=== PATIENT | male | born 1990 | race Caucasian/White ===

== ENCOUNTER 2018-06-02 19:14 | Emergency (ER) | payer BC ==
[2018-06-02 19:26] VITALS: BP 102/59
[2018-06-02 19:51] LABS: APPEARANCE,URINE CLEAR; BILIRUBIN,URINE NEGATIVE (NEGATIVE); COLOR,URINE AMBER; GLUCOSE, URINE NEGATIVE (NEGATIVE); KETONES,URINE NEGATIVE (NEGATIVE); LEUKOCYTE ESTERASE,URINE NEGATIVE (NEGATIVE); NITRITE,URINE NEGATIVE (NEGATIVE); PROTEIN,URINE 30 mg/dL (NEGATIVE)
--- NOTE | 2018-06-02 21:52 | ER Document Report ---
ED General - General Chief Complaint: Urinary Problem Stated Complaint: ABDOMINAL PAIN Time Seen by Provider: 06/02/18 21:18 TRAVEL OUTSIDE OF THE [place] IN LAST 30 DAYS: No - HPI Notes: 28-year-old male with history of anxiety, depression, insomnia, PTSD, IV drug abuse presents with multiple complaints. He initially stated that he was here for 2 days of bilateral foot swelling. Then he stated he was having a "reaction " to his Remeron. He states he was changed from Lunesta to Remeron about 1 week ago. He started hallucinating and talking to people that were not there. He would fall asleep during the day. He stopped taking this 2 days ago. Also reports constipation and states that there have been "bloody balls of stool in the toilet." Also reports an episode of "dark urine on the outside and bloody urine on the inside" whenever he urinated "for 5 minutes" today. He reported having lower abdominal pain and back pain during the episode. He is currently on Suboxone therapy and has not used IV drugs for a few months. - Related Data Allergies/Adverse Reactions: No Known Allergies Allergy (Verified 06/12/12 21:56) Past Medical History - Social History Smoking Status: Unknown if Ever Smoked Drug Abuse: Prescription drugs Family History: Reviewed & Not Pertinent Psychiatric Medical History: Reports: Hx Anxiety, Hx Attention Deficit Hyperactivity Disorder, Hx Depression, Hx Post Traumatic Stress Disorder - Immunizations Hx Diphtheria, Pertussis, Tetanus Vaccination: Yes Review of Systems - Review of Systems Notes: Constitutional: Negative for fever. HENT: Negative for sore throat. Eyes: Negative for visual changes. Cardiovascular: Negative for chest pain. Respiratory: Negative for shortness of breath. Gastrointestinal: Negative for abdominal pain, vomiting or diarrhea. Positive for constipation Genitourinary: Negative for dysuria. Positive for hematuria Musculoskeletal: Positive for back pain. Positive for bilateral feet swelling Skin: Negative for rash. Neurological: Negative for headaches, weakness or numbness. Positive for excessive sleepiness 10 point ROS negative except as marked above and in HPI. Physical Exam - Vital signs Vitals: Temp Pulse Resp BP Pulse Ox 98.2 F 81 16 102/59 L 100 06/02/18 19:23 06/02/18 19:23 06/02/18 19:23 06/02/18 19:23 08/14/18 19:23 - Notes Notes: PHYSICAL EXAMINATION: GENERAL: Well-appearing, well-nourished and in no acute distress. Appears older than stated age, disheveled HEAD: Atraumatic, normocephalic. EYES: Pupils equal round and reactive to light, extraocular movements intact, conjunctiva are normal. ENT: nares patent, oropharynx clear without exudates. Moist mucous membranes. NECK: Normal range of motion, supple without lymphadenopathy LUNGS: Breath sounds clear to auscultation bilaterally and equal. No wheezes rales or rhonchi. HEART: Regular rate and rhythm, no chest wall tenderness ABDOMEN: Soft, nontender, normoactive bowel sounds. No guarding, no rebound. No masses appreciated. EXTREMITIES: Normal range of motion. No cyanosis. 2+ pitting edema bilateral feet with tenderness NEUROLOGICAL: Cranial nerves grossly intact. Slurred speech, normal gait. Normal sensory and motor exams. PSYCH: Normal mood, normal affect. SKIN: Warm, Dry, normal turgor. Multiple areas of ecchymosis and excoriated skin lesions Course - Re-evaluation Re-evalutation: 06/02/18 23:45 Patient now remembers that he has a history of Lesli's thyroiditis, but has not been taking Synthroid for a year because he cannot find a doctor that we will treat him to work around his 6 day week work schedule. All of the unremarkable, but TSH pending. Urine drug screen positive for cocaine and benzos. 06/03/18 00:09 TSH normal. Family states he has recently relapsed on drugs while on Suboxone therapy. He has been to rehab multiple times but is not interested today. Will discharge. At this time will discharge with return precautions and follow-up recommendations. Verbal discharge instructions given a the bedside and opportunity for questions given. Medication warnings reviewed. Patient is in agreement with this plan and has verbalized understanding of return precautions and the need for primary care follow-up in the next 24-72 hours. - Vital Signs Vital signs: Temp Pulse Resp BP Pulse Ox 98.2 F 81 16 102/59 L 100 06/02/18 19:23 06/02/18 19:23 06/02/18 19:23 06/02/18 19:23 06/02/18 19:23 - Laboratory Result Diagrams: 06/02/18 22:15 06/02/18 22:15 Laboratory results interpreted by me: 06/02/18 06/02/18 06/02/18 19:15 22:15 22:15 RBC 3.88 L Hgb 11.6 L Hct 32.9 L Carbon Dioxide 31 H Glucose 128 H Urine Protein 30 H Urine Urobilinogen 4.0 H Discharge - Discharge Clinical Impression: Peripheral edema, Polysubstance abuse Constipation Qualifiers: Constipation type: unspecified constipation type Qualified Code(s): K59.00 - Constipation, unspecified Condition: Stable Disposition: HOME, SELF-CARE Additional Instructions: Increase fiber in diet. You may take daily stool softener such as Colace. Consider rehab therapy. Use compression stockings on legs and elevate. Referrals: JM,NO [NO LOCAL MD] - Follow up as needed SHANTA HANCOCK MD [ACTIVE STAFF] - Follow up in 3-5 days
[2018-06-02 22:11] LABS: URINE AMPHETAMINES SCREEN NEGATIVE; URINE BARBITURATES SCREEN NEGATIVE; URINE BENZODIAZEPINES SCREEN UNCONFIRMED POSITIVE; URINE MARIJUANA (THC) SCREEN NEGATIVE; URINE PHENCYCLIDINE SCREEN NEGATIVE
[2018-06-02 22:12] LABS: URINE COCAINE SCREEN UNCONFIRMED POSITIVE
[2018-06-02 22:14] LABS: URINE METHADONE SCREEN NEGATIVE
[2018-06-02 23:01] LABS: ABSOLUTE EOSINOPHILS # (AUTO) 0.1 10^3/uL (0.0-0.6); ABSOLUTE LYMPHOCYTES (AUTO) 1.7 10^3/uL (0.5-4.7); ABSOLUTE MONOCYTES (AUTO) 0.6 10^3/uL (0.1-1.4); ABSOLUTE NEUT (AUTO) 2.3 10^3/uL (1.7-8.2); BASOPHILS % (AUTO) 0.3 % (0-2); EOSINOPHILS % (AUTO) 2.3 % (0-6); HEMATOCRIT 32.9 % (37.9-51.0); HEMOGLOBIN 11.6 g/dL (13.5-17.0); LYMPHOCYTES % (AUTO) 35.8 % (13-45); MEAN CORPUSCULAR HGB CONC 35.4 g/dL (32.0-36.0); MEAN CORPUSCULAR VOLUME 85 fl (80-97); MONOCYTES % (AUTO) 12.6 % (3-13); PLATELET COUNT 222 10^3/uL (150-450); RED BLOOD COUNT 3.88 10^6/uL (4.35-5.55); RED CELL DISTRIBUTION WIDTH 12.6 % (11.5-14.0); TOTAL CELLS COUNTED % (AUTO) 100 %; WHITE BLOOD COUNT 4.6 10^3/uL (4.0-10.5)
[2018-06-02 23:24] LABS: ALANINE AMINOTRANSFERASE 34 U/L (21-72); ALBUMIN 3.7 g/dL (3.5-5.0); ALKALINE PHOSPHATASE 67 U/L (38-126); ANION GAP 9 (5-19); ASPARTATE AMINO TRANSFERASE 26 U/L (17-59); BILIRUBIN,DIRECT 0.2 mg/dL (0.0-0.4); BILIRUBIN,TOTAL 0.4 mg/dL (0.2-1.3); BLOOD UREA NITROGEN 13 mg/dL (7-20); CALCIUM 8.9 mg/dL (8.4-10.2); CARBON DIOXIDE 31 mmol/L (22-30); CHLORIDE 103 mmol/L (98-107); GLUCOSE 128 mg/dL (75-110); POTASSIUM 3.8 mmol/L (3.6-5.0); TOTAL PROTEIN 6.5 g/dL (6.3-8.2)
[2018-06-02 23:28] LABS: ALCOHOL < 10 mg/dL (NONE DETECTED)
[2018-06-03 02:04] LABS: CHLAM PCR NOT DETECTED (NOT DETECT); GON PCR NOT DETECTED (NOT DETECT)
== END 2018-06-03 00:30 | disposition home or self-care (01) ==
LOC: ER 19:14
DX: K59.00 Constipation, unspecified (principal); F19.10 Other psychoactive substance abuse, uncomplicated; R60.0 Localized edema; K92.1 Melena; M54.9 Dorsalgia, unspecified; R58 Hemorrhage, not elsewhere classified; R39.89 Other symptoms and signs involving the genitourinary system; Z79.891 Long term (current) use of opiate analgesic
CPT/HCPCS: 36415; 80053; 80307; 81001; 84443; 85025; 87491; 87591; 99284